=== PATIENT | male | born 1980 | race American Indian/Alaskan Native ===

== ENCOUNTER 2017-01-01 14:23 | Inpatient (IN) | payer OTHER ==
[2017-01-01 15:39] LABS: Anion Gap 16 mmol/L; BUN/Creatinine Ratio 13.75; Blood Urea Nitrogen 11 mg/dL (9-20); Carbon Dioxide 25 mmol/L (22-30); Chloride 103.2 mmol/L (98-107); Glucose 75 mg/dL (75-100); Potassium 4.3 mmol/L (3.6-5.0); Sodium 140 mmol/L (137-145)
[2017-01-01 15:49] LABS: Basophils % (Auto) 0.7 % (0.0-1.8); Eosinophils % (Auto) 1.9 % (0.0-4.3); Hematocrit 43.4 % (35.5-45.6); Hemoglobin 14.5 gm/dl (11.8-15.2); Mean Corpuscular HGB Conc 34 % (32-34); Mean Corpuscular Hemoglobin 30 pg (28-32); Mean Corpuscular Volume 90 fl (84-94); Platelet Count 263 K/mm3 (140-440); Red Blood Count 4.83 M/mm3 (3.65-5.03); Red Cell Distribution Width 15.2 % (13.2-15.2); White Blood Count 8.7 K/mm3 (4.5-11.0)
[2017-01-01] MEDS ORDERED: NACL 0.9% 1000 ML 1,000 ML IV ONE (19:32)
[2017-01-01] MEDS ORDERED: TORADOL IV ONE (19:32)
[2017-01-01] MEDS ORDERED: NITROSTAT SL PRN (19:32)
--- NOTE | 2017-01-01 19:33 | Emergency Department Report ---
ED Chest Pain HPI - General Chief Complaint: Chest Pain Stated Complaint: LEFT SIDE PAIN Time Seen by Provider: 01/01/17 18:54 Source: patient, RN notes reviewed Mode of arrival: Ambulatory Limitations: No Limitations - History of Present Illness Initial Comments: This is a 36-year-old male who was previously unknown to this provider. He does not have a primary care doctor, and denies chronic medical conditions. 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 The patient presents to the ER with multiple complaints. The first complaint is left-sided chest pain. The chest pain has been present for 1 day since this morning. It does not radiate to the back, arms or neck, there is no vomiting or diaphoresis. The patient doesn't drawers a sensation of lightheadedness and almost passing out, as well as some shortness of breath. The patient says complaint is left hip pain and groin pain. This has been present for the past few days. It occasionally radiates distally. He symmetrically feels like his left lower extremity is more swollen than his right. This is corroborated by his family. There is no hematemesis or bright red blood per rectum. MD Complaint: chest pain -: Gradual Onset: during rest Pain Location: left chest Severity: moderate Quality: aching Consistency: intermittent Improves With: nothing Worsens With: nothing Context: recent immobilization Treatments Prior to Arrival: none Aspirin use within the Past 7 Days: (0) No - Related Data On Oral Contraceptives: No Allergies Allergy/AdvReac Type Severity Reaction Status Date / Time No Known Allergies Allergy Verified 01/01/17 14:35 Heart Score - HEART Score History: Moderately suspicious EKG: Non-specific Age: < 45 Risk factors: 1-2 risk factors Troponin: < normal limit HEART Score: 3 - Critical Actions Critical Actions: 0-3 pts:0.9-1.7%risk of adverse cardiac event.Candidate for discharge ED Review of Systems ROS: Stated complaint: LEFT SIDE PAIN Other details as noted in HPI Constitutional: malaise. denies: fever Eyes: denies: eye discharge ENT: denies: epistaxis Respiratory: denies: cough Cardiovascular: chest pain, syncope Gastrointestinal: denies: abdominal pain Musculoskeletal: back pain, arthralgia, myalgia Skin: denies: lesions Neurological: denies: headache Psychiatric: as per HPI ED Past Medical Hx - Past Medical History Additional medical history: obesity - Surgical History Past Surgical History?: No - Social History Smoking Status: Current Every Day Smoker Substance Use Type: Alcohol ED Physical Exam - General Limitations: No Limitations General appearance: alert, in no apparent distress, obese - Head Head exam: Present: atraumatic, normocephalic - Eye Eye exam: Present: normal appearance, EOMI. Absent: nystagmus - ENT ENT exam: Present: normal exam, normal orophraynx, mucous membranes moist, normal external ear exam - Neck Neck exam: Present: normal inspection, full ROM. Absent: tenderness, meningismus - Respiratory Respiratory exam: Present: normal lung sounds bilaterally. Absent: respiratory distress, wheezes, rales, rhonchi, stridor, chest wall tenderness, accessory muscle use, decreased breath sounds, prolonged expiratory - Cardiovascular Cardiovascular Exam: Present: regular rate, normal rhythm, normal heart sounds. Absent: bradycardia, tachycardia, irregular rhythm, systolic murmur, diastolic murmur, rubs, gallop - GI/Abdominal GI/Abdominal exam: Present: soft, normal bowel sounds. Absent: distended, tenderness, guarding, rebound, rigid, pulsatile mass - Rectal Rectal exam: Present: deferred - Extremities Exam Extremities exam: Present: normal inspection, normal capillary refill, other ( the pelvis is stable, there are 2+ pulses noted in the bilateral upper and lower extremities. There is no redness, pus or streaking in the lower extremities. There is some pain with passive range of motion of the left hip. The patient is able to weight-bear with a slight limp.). Absent: pedal edema, joint swelling, calf tenderness - Back Exam Back exam: Present: normal inspection. Absent: tenderness, paraspinal tenderness - Neurological Exam Neurological exam: Present: alert, oriented X3, normal gait, other (Extraocular movements intact. Tongue midline. No facial droop. Facial sensation intact to light touch in the V1, V2, V3 distribution bilaterally. 5 and 5 strength in 4 extremities.. Sensation is intact to light touch in 4 extremities.). Absent : motor sensory deficit - Psychiatric Psychiatric exam: Present: normal affect, normal mood - Skin Skin exam: Present: warm, dry, intact, normal color. 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 At this point in time, the vascular lab is not available to perform left lower extremity DVT rule out. I appreciated the patient has a negative d-dimer, but I do not find the patient low risk by well's criteria, he therefore requires a CT scan of the chest to exclude pulmonary embolus. He will be treated symptomatically. Even if no pulmonary embolus is identified on CT scan, given his abnormal EKG and symptoms, patient will be admitted to the hospital for acute coronary syndrome risk stratification. Reevaluation #2: 01/01/17 21:23 CT scan of the chest is negative. Dr. Fajardo, the hospital physician, accepts the patient to her service. CYRUS score - Cyrus Score Age > 65: (0) No Aspirin use within the Past 7 Days: (0) No 3 or more CAD Risk Factors: (0) No 2 or more Angina events in past 24 hrs: (0) No Known CAD with more than 50% Stenosis: (0) No Elevated Cardiac Markers: (0) No ST Deviation Greater than 0.5mm: (0) No CYRUS Score: 0 ED Medical Decision Making - Lab Data Result diagrams: 01/01/17 15:07 01/01/17 15:07 Vital Signs 01/01/17 01/01/17 14:37 20:14 Temperature 98.7 F 98.6 F Pulse Rate 97 H 83 Respiratory 19 17 Rate Blood Pressure 119/72 Blood Pressure 119/76 [Left] O2 Sat by Pulse 98 99 Oximetry Lab Results 01/01/17 01/01/17 01/01/17 Range/Units 15:07 15:07 17:27 WBC 8.7 (4.5-11.0) K/mm3 RBC 4.83 (3.65-5.03) M/mm3 Hgb 14.5 (11.8-15.2) gm/dl Hct 43.4 (35.5-45.6) % MCV 90 (84-94) fl MCH 30 (28-32) pg MCHC 34 (32-34) % RDW 15.2 (13.2-15.2) % Plt Count 263 (140-440) K/mm3 Lymph % (Auto) 26.9 (13.4-35.0) % [place] % (Auto) 10.2 H (0.0-7.3) % Eos % (Auto) 1.9 (0.0-4.3) % Baso % (Auto) 0.7 (0.0-1.8) % Lymph # 2.3 (1.2-5.4) K/mm3 [place] # 0.9 H (0.0-0.8) K/mm3 Eos # 0.2 (0.0-0.4) K/mm3 Baso # 0.1 (0.0-0.1) K/mm3 Seg Neutrophils % 60.3 (40.0-70.0) % Seg Neutrophils # 5.2 (1.8-7.7) K/mm3 PT (12.2-14.9) Sec. INR (0.87-1.13) APTT (24.2-36.6) Sec. D-Dimer (0-234) ng/mlDDU Sodium 140 (137-145) mmol/L Potassium 4.3 (3.6-5.0) mmol/L Chloride 103.2 (98-107) mmol/L Carbon Dioxide 25 (22-30) mmol/L Anion Gap 16 mmol/L BUN 11 (9-20) mg/dL Creatinine 0.8 (0.8-1.5) mg/dL Estimated GFR > 60 ml/min BUN/Creatinine Ratio 13.75 % Glucose 75 (75-100) mg/dL Calcium 9.0 (8.4-10.2) mg/dL Total Creatine Kinase (55-170) units/L Troponin T < 0.010 < 0.010 (0.00-0.029) ng/mL 01/01/17 01/01/17 01/01/17 Range/Units 19:51 19:51 19:51 WBC (4.5-11.0) K/mm3 RBC (3.65-5.03) M/mm3 Hgb (11.8-15.2) gm/dl Hct (35.5-45.6) % MCV (84-94) fl MCH (28-32) pg MCHC (32-34) % RDW (13.2-15.2) % Plt Count (140-440) K/mm3 Lymph % (Auto) (13.4-35.0) % [place] % (Auto) (0.0-7.3) % Eos % (Auto) (0.0-4.3) % Baso % (Auto) (0.0-1.8) % Lymph # (1.2-5.4) K/mm3 [place] # (0.0-0.8) K/mm3 Eos # (0.0-0.4) K/mm3 Baso # (0.0-0.1) K/mm3 Seg Neutrophils % (40.0-70.0) % Seg Neutrophils # (1.8-7.7) K/mm3 PT 14.0 (12.2-14.9) Sec. INR 1.09 (0.87-1.13) APTT 31.3 (24.2-36.6) Sec. D-Dimer 156.08 (0-234) ng/mlDDU Sodium (137-145) mmol/L Potassium (3.6-5.0) mmol/L Chloride (98-107) mmol/L Carbon Dioxide (22-30) mmol/L Anion Gap mmol/L BUN (9-20) mg/dL Creatinine (0.8-1.5) mg/dL Estimated GFR ml/min BUN/Creatinine Ratio % Glucose (75-100) mg/dL Calcium (8.4-10.2) mg/dL Total Creatine Kinase 103 (55-170) units/L Troponin T < 0.010 (0.00-0.029) ng/mL - EKG Data -: EKG Interpreted by Me - EKG Data 01/01/17 20:30 Normal sinus, 97 beats per minute, left axis deviation, left anterior fascicular block, abnormal EKG, not morphologically consistent with STEMI, there is no prior EKG available for comparison. - Radiology Data Radiology results: pending, report reviewed, image reviewed X-ray of the hip/pelvis negative for acute disease Critical care attestation.: If time is entered above; I have spent that time in minutes in the direct care of this critically ill patient, excluding procedure time. ED Disposition Clinical Impression: Near syncope, Chest pain, Abnormal EKG Disposition: OP ADMIT IP TO THIS HOSP Is pt being admited?: Yes Condition: Good
--- NOTE | 2017-01-01 20:03 | XRay Report ---
FINAL REPORT PROCEDURE: XR HIP 2-3V LT TECHNIQUE: LEFT hip radiographs, 2 views each, including AP view of the pelvis. HISTORY: left hip pain COMPARISON: No prior studies are available for comparison. FINDINGS: Fracture (s) and/or Dislocation(s): None . Joint space(s): Normal. Soft tissues: Normal. Bone mineralization: Normal. Foreign bodies: None. IMPRESSION: Normal Examination.
[2017-01-01 20:15] LABS: INR 1.09 (0.87-1.13); Partial Thromboplastin Time 31.3 Sec. (24.2-36.6)
--- NOTE | 2017-01-01 21:10 | Cat Scan Report ---
FINAL REPORT EXAM: CT ANGIO CHEST HISTORY: cp near syncope COMPARISON: None available. TECHNIQUE: Contiguous axial images were obtained. Additional sagittal and coronal reformatted images were obtained. Administration of IV contrast given per institution protocol. Images submitted for interpretation. Max intensity projection images. 100 cc Omnipaque 350. FINDINGS: Heart normal in size. Thoracic aorta normal in caliber. No dissection. No pulmonary embolus. Small tiny thymic remnant is present. No pathologically enlarged intrathoracic or axillary lymph nodes. Mild paraseptal emphysema. Mild linear and subsegmental atelectasis at the lung bases. No dense consolidation or effusion. Tracheobronchial tree is patent. Mild degenerative changes of the thoracic spine. Small hiatal hernia. Mild wall thickening of the distal esophagus concerning for esophagitis. There is a least 1 borderline enlarged lymph node adjacent to the distal esophagus measuring 9 x 7 millimeters which may be reactive. IMPRESSION: No pulmonary embolus. No acute infiltrates or effusions. Mild paraseptal emphysema. Small hiatal hernia with wall thickening the distal esophagus and presumed reactive lymph nodes at the margin the sockets concerning for esophagitis.
[2017-01-01] MEDS ORDERED: PROTONIX PO ONE (21:23)
[2017-01-01] MEDS ORDERED: CARAFATE PO ONE (21:23)
[2017-01-01] MEDS ORDERED: BABY ASPIRIN PO ONE (21:23)
[2017-01-01] MEDS ORDERED: ZOFRAN IV PRN (21:57)
[2017-01-01] MEDS ORDERED: MILK OF MAGNESIA PO PRN (21:57)
[2017-01-01] MEDS ORDERED: SODIUM CHLORIDE FLUSH SYRINGE 10 ML IV PRN (21:57)
[2017-01-01] MEDS ORDERED: TYLENOL PO PRN (21:57)
[2017-01-01] MEDS ORDERED: DULCOLAX PR PRN (21:57)
--- NOTE | 2017-01-01 22:01 | History and Physical Report ---
History of Present Illness Date of examination: 01/01/17 History of present illness: 36-year-old man with no medical problems comes emergency room with complaint of chest pain and hip pain. Pain is in the left chest which she describes a sharp pain, intermittent in nature lasting for 30 seconds, intensity 3/10, no radiation, similar to identify exacerbating or relieving factors. Complaining of feeling dizzy, no nausea vomiting, shortness breath, diaphoresis or palpitation. Also complaining of pain in the left hip, not relief weight muscle relaxant, ibuprofen and ice. All the symptoms started yesterday Review Of Systems: Constitutional: no weight loss Ears, eyes, nose, mouth and throat: no nasal congestion, no nasal discharge, no sinus pressure, blurry vision, diplopia Neck: No neck pain or rigidity. Cardiovascular:no orthopnea, palpitations Respiratory: No shortness of breath, cough Gastrointestinal: abdominal pain, hematochezia Genitourinary : no dysuria, frequency , hematuria Musculoskeletal: no muscle ache Integumentary: no rash, no pruritis Neurological: no parathesias, focal weakness Endocrine: no cold or heat intolerance, no polyuria or polydipsia Hematologic/Lymphatic: no easy bruising, no easy bleeding, no gland swelling Allergic/Immunologic: no urticaria, no angioedema. PAST MEDICAL HISTORY:None PAST SURGICAL HISTORY:None FAMILY HISTORY: Hypertension SOCIAL HISTORY: Smoke a pack a day, social alcohol, no drugs Medications and Allergies Allergies Allergy/AdvReac Type Severity Reaction Status Date / Time No Known Allergies Allergy Verified 01/01/17 14:35 Active Meds: Active Medications Acetaminophen (Tylenol) 650 mg PO Q4H PRN PRN Reason: Pain MILD(1-3)/Fever >100.5/PERSAUD Bisacodyl (Dulcolax) 10 mg CO QDAY PRN PRN Reason: Constipation unrelieved by MOM Enoxaparin Sodium (Lovenox) 30 mg SUB-Q QDAY ALYCIA Magnesium Hydroxide (Milk Of Magnesia) 30 ml PO Q4H PRN PRN Reason: Constipation Nitroglycerin (Nitrostat) 0.4 mg SL .Q5MIN PRN PRN Reason: Chest Pain Exam - Physical Exam Narrative exam: Gen. appearance: Patient lying in bed in no acute distress HEENT: Normocephalic/atraumatic, pupils equal round reactive to light, extra alkaline movement intact, no scleral icterus, no JVD or thyromegaly or nodule, neck is supple, mucous membrane moist, no erythema or exudate Heart: S1-S2, regular rate and rhythm Lungs: Clear to auscultation bilateral breathing comfortable Abdomen: Positive bowel sounds, nontender, nondistended, no organomegaly Extremities: No edema, cyanosis, clubbing Neuro:: Oriented 3 , cranial nerves II-12 intact, speech, motor intact Skin: No rash, nodules, warm dry - Constitutional Vitals: Temp Pulse Resp BP Pulse Ox 98.6 F 83 17 119/76 99 01/01/17 20:14 01/01/17 20:14 01/01/17 20:14 01/01/17 20:14 01/01/17 20:14 Results - Labs CBC & Chem 7: 01/01/17 15:07 01/01/17 15:07 Labs: Abnormal lab results 01/01/17 Range/Units 15:07 [place] % (Auto) 10.2 H (0.0-7.3) % [place] # 0.9 H (0.0-0.8) K/mm3 - Imaging and Cardiology EKG: image reviewed CT scan - chest: report reviewed Assessment and Plan X-ray of the hip normal Assessment Atypical chest pain Pain in the hip Plan Admit to [facility] cardiac enzymes, stress test *Percocet for pain, DVT prophylaxis
[2017-01-01 22:42] LABS: Creatine Kinase MB < 1.0 ng/mL (0.0-4.0)
[2017-01-01 22:43] LABS: Creatine Kinase 103 units/L (55-170)
[2017-01-01] MEDS: PERCOCET 5/325 PO PRN (23:32)
[2017-01-02 05:20] LABS: Basophils % (Auto) 0.5 % (0.0-1.8); Eosinophils % (Auto) 3.3 % (0.0-4.3); Hematocrit 41.2 % (35.5-45.6); Hemoglobin 13.7 gm/dl (11.8-15.2); Mean Corpuscular HGB Conc 33 % (32-34); Mean Corpuscular Hemoglobin 30 pg (28-32); Mean Corpuscular Volume 90 fl (84-94); Platelet Count 246 K/mm3 (140-440); Red Blood Count 4.58 M/mm3 (3.65-5.03); Red Cell Distribution Width 15.1 % (13.2-15.2); White Blood Count 7.6 K/mm3 (4.5-11.0)
[2017-01-02 05:43] LABS: Anion Gap 16 mmol/L; Blood Urea Nitrogen 14 mg/dL (9-20); Calcium 8.7 mg/dL (8.4-10.2); Carbon Dioxide 25 mmol/L (22-30); Glucose 109 mg/dL (75-100); Sodium 142 mmol/L (137-145)
[2017-01-02 05:44] LABS: Creatine Kinase MB < 1.0 ng/mL (0.0-4.0)
[2017-01-02 05:47] LABS: Creatine Kinase 94 units/L (55-170)
[2017-01-02] MEDS ORDERED: LEXISCAN IV ONE (08:10)
--- NOTE | 2017-01-02 09:22 | Discharge Summary ---
Providers - Providers Date of Admission: 01/01/17 21:57 Date of discharge: 01/02/17 Attending physician: MOHINDER WILLIS Primary care physician: ZAIDA ALMANZAR MD Hospitalization Condition: Good Hospital course: 36-year-old presented with shortness of breath and chest pain. Initial troponin was normal. Etiology angiogram was negative for pulmonary embolism but showed evidence of esophagitis. He was given aspirin and admitted to rule out acute coronary syndrome. Stress test done the following day was normal. Chest pain due to GERD with esophagitis. He was subsequently discharged home on omeprazole daily. Patient also had left hip pain and x-ray was unremarkable so he was put on tramadol and asked to follow with primary care physician(for general follow up) and GI physician(for esophagitis). Disposition: TO HOME OR SELFCARE - Discharge Diagnoses (1) GERD with esophagitis Status: Acute (2) Chest pain Status: Acute Qualifiers: Chest pain type: C Ischemic chest pain type: I Comment: due to GERD (3) Morbid obesity with BMI of 40.0-44.9, adult Status: Chronic Core Measure Documentation - Palliative Care Palliative Care/ Comfort Measures: Not Applicable - Core Measures Any of the following diagnoses?: none Exam - Constitutional Vitals: Temp Pulse Resp BP Pulse Ox 98.5 F 77 20 122/81 95 01/02/17 07:44 01/02/17 07:44 01/02/17 07:44 01/02/17 07:44 01/02/17 08:36 General appearance: Present: no acute distress, obese - Respiratory Respiratory effort: normal Respiratory: bilateral: CTA - Extremities Extremities: No edema - Musculoskeletal Musculoskeletal: strength equal bilaterally - Neurologic Neurologic: moves all extremities Plan Activity: no restrictions Diet: low fat, low cholesterol, low salt Additional Instructions: 1.Follow up with PCP or [facility] in 1 week. 2.Follow up with Dr. Lin, GI or any GI Physician of choice in 1-2 weeks to evaluate esophagitis. 3.Avoid NSAID and spicy foods Follow up with: PRIMARY CARE, [Primary Care Provider] - 3-5 Days Prescriptions: Omeprazole Magnesium [PriLOSEC Otc] 20 mg PO QDAY #30 tablet. traMADol [Ultram 50 MG tab] 50 mg PO Q6HR PRN #20 tablet PRN Reason: Pain
[2017-01-02] MEDS ORDERED: LOVENOX SUB-Q SCH (10:00)
[2017-01-02 11:24] VITALS: BP 121/74
[2017-01-02] MEDS: PERCOCET 5/325 PO PRN (12:00)
--- NOTE | 2017-01-02 15:56 | Treadmill Report ---
MYOCARDIAL PERFUSION SCAN Nuclear stress test. REFERRING PHYSICIAN: Tina Fajardo M.D. PROTOCOL: The patient was brought to the stress lab in a postabsorptive state, given 10 mCi of technetium 99m at rest. The patient underwent rest imaging. The patient underwent Lexiscan stress test per standard protocol. At peak stress, the patient was given 26 mCi of technetium at rest. The patient underwent stress imaging. Interpretation, SPECT imaging examined carefully in the horizontal long axis, vertical long axis, and short axis views. This is a technically difficult study due to body habitus, but grossly no significant fixed or reversible perfusion defects suggestive of prior infarction or ischemia. Gated wall motion reveals normal systolic thickening, calculated ejection fraction of 55%. No TID. CONCLUSIONS: 1. Technically difficult study, but grossly normal myocardial perfusion scan without evidence of active ischemia or prior infarction. 2. Normal left ventricular systolic performance without evidence of transient ischemic dilatation or stress-induced segmental wall motion abnormalities. JOB# [id number] ISHMAEL/EDITA
== END 2017-01-02 14:35 | disposition home or self-care (01) | DRG 392 ==
LOC: ED 14:23 → 4A 21:57
PROVIDERS: ADMIT Internal Medicine; ATTEND Internal Medicine
DX: K21.0 Gastro-esophageal reflux disease with esophagitis (principal); Z68.41 Body mass index [BMI] 40.0-44.9, adult; F17.200 Nicotine dependence, unspecified, uncomplicated; E66.9 Obesity, unspecified; Z82.49 Family history of ischemic heart disease and other diseases of the circulatory system
CPT/HCPCS: 36415; 71275; 78452; 80048; 82550; 82553; 84484; 85025; 85379; 85610; 85730; 93005; 93010; 93017; 96361; 96374; A9502; J1650; J1885; J2785; J7030; Q9967